=== PATIENT | male | born 1965 | race Caucasian/White ===

== ENCOUNTER → 2019-09-03 11:15 | Outpatient (CLI) | payer OTHER, SELFPAY ==
[2019-09-03 11:33] LABS: Basophils % 0.7 % (0.1-2.0); Eosinophils # 0.1 K/mm3 (0.0-0.4); Eosinophils % 2.4 % (0.1-12.0); Lymphocytes # 1.2 K/mm3 (0.7-4.5); Lymphocytes % 20.5 % (10-50); Mean Corpuscular HGB Conc 31.8 g/dL (31.8-35.4); Mean Corpuscular Hemoglobin 29.2 pg (27.0-31.2); Mean Corpuscular Volume 92.1 fl (80-94); Mean Platelet Volume 9.3 fl (7.4-10.4); Monocytes # 0.5 K/mm3 (0.1-1.0); Monocytes % 8.5 % (1.7-9.3); Neutrophils % 67.9 % (37.0-80.0); Platelet Count 226 K/mm3 (142-424); Red Blood Count 4.78 M/mm3 (4.60-6.20); Red Cell Distribution Width 13.3 % (11.5-17.5)
[2019-09-03 13:39] LABS: Alanine Aminotransferase 17 U/L (12-78); Albumin Level 3.6 gm/dL (3.4-5.0); Alkaline Phosphatase 108 U/L (46-116); Anion Gap 13.4 mEq/L (5-15); Aspartate Amino Transferase 10 U/L (15-37); Bilirubin,Total 0.3 mg/dL (0.2-1.0); Blood Urea Nitrogen 10 mg/dL (7-18); Calcium 8.8 mg/dL (8.5-10.1); Carbon Dioxide 26 mmol/L (21.0-32.0); Chloride 104 mmol/L (98-107); Chol/HDL Ratio 3.7 (1-3.5); Cholesterol 178 mg/dL (140-200); Free T4 (Free Thyroxine) 0.75 ng/dl (0.76-1.46); Glucose 90 mg/dL (74-106); HDL Cholesterol 48 mg/dL (27-67); LDL Cholesterol 107 mg/dL (0-130); Potassium 4.4 mmoL/L (3.5-5.1); Prostate Specific Ag Screen 0.7 ng/mL (0.0-4.0); Sodium 139 mmol/L (136-145); Total Protein,Serum 7.1 gm/dL (6.4-8.2); Triglycerides 117 mg/dL (30-200); VLDL Cholesterol 23 mg/dL (0-40)
[2019-09-03 13:56] LABS: Bilirubin,Direct 0.1 mg/dL (0.0-0.2); Bilirubin,Indirect 0.2 mg/dL (0.0-0.9); Creatinine,Serum 0.81 mg/dL (0.70-1.30); Estimated Glomerular Filt Rate 99 ml/min (>60); GFR (African American) 120 ML/MIN (>60)
== END ==
PROVIDERS: Visit Provider Internal Medicine
DX: E78.5 Hyperlipidemia, unspecified (principal); I11.9 Hypertensive heart disease without heart failure; I25.10 Atherosclerotic heart disease of native coronary artery without angina pectoris
CPT/HCPCS: 36415; 80048; 80061; 80076; 84439; 84443; 85025; G0103

== ENCOUNTER → 2020-09-27 09:08 | Outpatient (CLI) | payer OTHER, SELFPAY ==
--- NOTE | 2020-09-27 09:10 | CA_ITS ---
APPROVED REPORT EXAM: Comprehensive 2D, Doppler, and color-flow Echocardiogram Digital Marketing Specialist: Alysia Marmolejo RDCS Ht: 5 ft 11 in Wt: 282lbs BSA: 2.44 BP: 157/82 mmHg Indications: CAD OBESITY,HTN,HLP 2D Dimensions LVOT 2.24 cm (M/F) 1.5-2.5 M-Mode Dimensions RVDd 3.25 cm (0.9-2.6) LA Diam 3.55 cm (1.9-4.0) LVDd 6.00 cm (3.5-5.7) Ao Diam 3.21 cm (2.0-3.7) LVDs 3.39 cm (3.5-5.7) IVSd 1.13 cm (0.6-1.1) PWd 1.08 cm (0.6-1.1) EF (Teich) 73.80% FS 43.50% EDV (Teich) 180.00 mL ESV (Teich) 47.10 mL LV Diastology E Decel Time 187.00 (160-240 msec) E/A Ratio 0.6 MED E' 6.80 (< 7 cm/sec) E'/MED E' Ratio 6.99 (>14) LAT E' 10.00 (<10 cm/sec) E/LAT E' Ratio 4.75 (>14) Mitral Valve MV E Max Wero. 47.00 (40-130 cm/s) MV A Velocity 75.00 (40-130 cm/s) E/A Ratio 0.63 MV Decel. Time 187.00 (160-240 ms) MV PHT 55.00 ms Left Ventricle Left atrium is mildly enlarged, left ventricle is normal size, mild concentric left ventricular hypertrophy, visually estimated ejection fraction 55% with no regional wall motion abnormality, grade 1 diastolic dysfunction seen without tissue Doppler evidence of raise left atrial pressure. Right Ventricle Right atrium and right ventricle mildly enlarged with normal contractility. Aortic Valve Aortic valve is minimally thickened and fibrosed, there is no aortic stenosis or aortic insufficiency. Mitral Valve Mitral valve is grossly normal, there is mild mitral regurgitation. Tricuspid Valve Tricuspid valve is grossly normal, there is mild tricuspid regurgitation, tricuspid regurgitation jet velocity is inadequate for calculation of the right ventricular systolic pressure. Pulmonic Valve Pulmonic valve is poorly visualized. Great Vessels Aortic root is normal size. Pericardium No significant pericardial effusion noted. Conclusion 1. Mild biatrial alignment, normal left ventricular size, mild concentric left ventricular hypertrophy, visually estimated ejection fraction 55% with no regional wall motion abnormality, grade 1 diastolic dysfunction seen without tissue Doppler evidence of raise left atrial pressure. 2. Mildly enlarged right ventricle with normal contractility. 3. Mild mitral and tricuspid regurgitation. 4. No significant pericardial effusion noted. Electronically signed by : Kulwant Mcgee, 09/28/2020 05:36:18
== END ==
PROVIDERS: PCP Physician Assistant Medical; Visit Provider Physician Assistant
DX: I25.10 Atherosclerotic heart disease of native coronary artery without angina pectoris (principal); E78.2 Mixed hyperlipidemia; I11.9 Hypertensive heart disease without heart failure
CPT/HCPCS: 93306

== ENCOUNTER → 2022-11-21 07:28 | Outpatient (CLI) | payer OTHER, SELFPAY ==
[2022-11-21 07:43] LABS: Basophils # 0.1 K/mm3 (0-0.2); Basophils % 1.4 % (0.1-2.0); Eosinophils # 0.1 K/mm3 (0.0-0.4); Eosinophils % 2.5 % (0.1-12.0); Hematocrit 44.2 % (42.0-52.0); Hemoglobin 14.7 g/dL (14.1-18.0); Lymphocytes # 1.6 K/mm3 (0.7-4.5); Lymphocytes % 28.6 % (10-50); Mean Corpuscular HGB Conc 33.3 g/dL (31.8-35.4); Mean Corpuscular Hemoglobin 29.6 pg (27.0-31.2); Mean Corpuscular Volume 88.9 fl (80-94); Mean Platelet Volume 9.9 fl (7.4-10.4); Monocytes # 0.4 K/mm3 (0.1-1.0); Monocytes % 6.9 % (1.7-9.3); Neutrophils # 3.4 K/mm3 (1.8-7.8); Neutrophils % 60.7 % (37.0-80.0); Platelet Count 238 K/mm3 (142-424); Red Blood Count 4.97 M/mm3 (4.60-6.20); Red Cell Distribution Width 12.8 % (11.5-17.5); White Blood Count 5.6 K/mm3 (4.8-10.8)
[2022-11-21 08:54] LABS: Alanine Aminotransferase 24 U/L (12-78); Albumin Level 4.4 g/dl (3.5-5.0); Alkaline Phosphatase 88 U/L (38-126); Anion Gap 13.2 mEq/L (5-15); Aspartate Amino Transferase 25 U/L (17-59); Bilirubin,Direct 0.1 mg/dl (0.0-0.4); Bilirubin,Indirect 0.3 mg/dL (0.0-0.9); Bilirubin,Total 0.4 mg/dl (0.2-1.3); Bilirubin,Unconjugated 0.3 mg/dL (0.0-1.1); Blood Urea Nitrogen 20 mg/dl (9-20); Calcium 8.8 mg/dl (8.4-10.2); Carbon Dioxide 24 mmol/L (22.0-30.0); Chloride 106 mmol/L (98-107); Cholesterol 208 mg/dl (140-200); Estimated Glomerular Filt Rate 87 ml/min (>60); GFR (African American) 105 ML/MIN (>60); Glucose 102 mg/dl (74-100); HDL Cholesterol 42 mg/dl (40-60); Potassium 4.2 mmoL/L (3.5-5.1); Sodium 139 mmol/L (136-145); Total Protein,Serum 7.3 g/dl (6.3-8.2); Triglycerides 101 mg/dl (30-150); VLDL Cholesterol 20 mg/dL (0-40)
[2022-11-21 09:11] LABS: Direct LDL Cholesterol 139.07 mg/dL (100-129); Free T4 (Free Thyroxine) 0.83 ng/dl (0.78-2.19)
[2022-11-21 09:24] LABS: Thyroid Stimulating Hormone 2.18 uIU/mL (0.465-4.68)
== END ==
PROVIDERS: PCP Physician Assistant Medical; Visit Provider Physician Assistant
DX: I25.10 Atherosclerotic heart disease of native coronary artery without angina pectoris (principal); I11.9 Hypertensive heart disease without heart failure; E03.9 Hypothyroidism, unspecified; E78.2 Mixed hyperlipidemia; Z79.899 Other long term (current) drug therapy
CPT/HCPCS: 36415; 80048; 80061; 80076; 83735; 84439; 84443; 85025

== ENCOUNTER → 2023-09-18 11:51 | Outpatient (CLI) | payer OTHER, SELFPAY ==
[2023-09-18 12:32] LABS: Basophils % 0.5 % (0.1-2.0); Eosinophils # 0.2 K/mm3 (0.0-0.4); Hematocrit 44.1 % (42.0-52.0); Hemoglobin 15.6 g/dL (14.1-18.0); Lymphocytes # 1.5 K/mm3 (0.7-4.5); Lymphocytes % 18.6 % (10-50); Mean Corpuscular HGB Conc 35.3 g/dL (31.8-35.4); Mean Corpuscular Hemoglobin 31.7 pg (27.0-31.2); Mean Platelet Volume 9.4 fl (7.4-10.4); Monocytes # 0.5 K/mm3 (0.1-1.0); Monocytes % 6.6 % (1.7-9.3); Neutrophils # 5.9 K/mm3 (1.8-7.8); Neutrophils % 72.3 % (37.0-80.0); Platelet Count 193 K/mm3 (142-424); Red Cell Distribution Width 12.5 % (11.5-17.5); White Blood Count 8.1 K/mm3 (4.8-10.8)
[2023-09-18 13:28] LABS: Chloride 105 mmol/L (98-107); Potassium 4.1 mmoL/L (3.5-5.1); Sodium 136 mmol/L (136-145)
[2023-09-18 13:30] LABS: Blood Urea Nitrogen 14 mg/dl (9-20); Estimated Glomerular Filt Rate 99 ml/min (>60); GFR (African American) 120 ML/MIN (>60)
[2023-09-18 13:31] LABS: Alanine Aminotransferase 23 U/L (12-78); Albumin Level 4.4 g/dl (3.5-5.0); Alkaline Phosphatase 119 U/L (38-126); Anion Gap 10.1 mEq/L (5-15); Aspartate Amino Transferase 27 U/L (17-59); Bilirubin,Direct 0.2 mg/dl (0.0-0.4); Bilirubin,Indirect 0.7 mg/dL (0.0-0.9); Bilirubin,Total 0.9 mg/dl (0.2-1.3); Bilirubin,Unconjugated 0.7 mg/dL (0.0-1.1); Calcium 8.8 mg/dl (8.4-10.2); Carbon Dioxide 25 mmol/L (22.0-30.0); Cholesterol 133 mg/dl (140-200); Glucose 92 mg/dl (74-100); Total Protein,Serum 7.5 g/dl (6.3-8.2); Triglycerides 103 mg/dl (30-150); VLDL Cholesterol 21 mg/dL (0-40)
[2023-09-18 13:32] LABS: Chol/HDL Ratio 3.3 (1-3.5); HDL Cholesterol 40 mg/dl (40-60)
[2023-09-18 13:54] LABS: Free T4 (Free Thyroxine) 0.96 ng/dl (0.78-2.19)
[2023-09-18 13:55] LABS: Direct LDL Cholesterol 80.86 mg/dL (100-129)
[2023-09-18 14:13] LABS: Thyroid Stimulating Hormone 1.81 uIU/mL (0.465-4.68)
== END ==
PROVIDERS: Nurse Practitioner Family; PCP Physician Assistant Medical; Visit Provider Internal Medicine
DX: I11.9 Hypertensive heart disease without heart failure (principal); I25.10 Atherosclerotic heart disease of native coronary artery without angina pectoris; E78.5 Hyperlipidemia, unspecified; Z86.73 Personal history of transient ischemic attack (TIA), and cerebral infarction without residual deficits; Z79.899 Other long term (current) drug therapy; Z87.891 Personal history of nicotine dependence
CPT/HCPCS: 36415; 80048; 80061; 80076; 84439; 84443; 85025

== ENCOUNTER → 2023-09-26 11:13 | Outpatient (CLI) | payer OTHER, SELFPAY ==
--- NOTE | 2023-09-26 | CA_ITS ---
APPROVED REPORT Exam: Exercise Treadmill Technologist: Lavinia Rosenbaum, Ht: 5 ft 11 in Wt: 278 lbs BSA: 2.43 m2 HR: 145 bpm BP: 145/80 mmHg Rhythm: Sinus anu, cannot r/o old inferior NM Indications: Arm pain, Fatigue Medical History Medical History: HTN, Hyperlipidemia Medications: Omeprazole,,,,, Levothyroxine,,,,, Aspirin,,,,, Vitamin B12,,,,, Vitamin D3,,,,, Atorvastatin,,,,, Valsartan,,,,, LoraTidine,,,,, Multivitamin,,,,, Allergies: Pcn Cardiac Risk Factors: HTN, Hyperlipidemia Previous Cardiac Procedures: Stent Stress Test Details Test: Noah HR Resting HR: 67 bpm Max Heart Rate (APMHR): 162 bpm Max HR Achieved: 145 bpm Target HR (85% APMHR): 138 bpm % of APMHR: 90 Recovery HR: 89 bpm HR response to stress: Normal HR response to stress BP Resting BP: 139.0/80.0 mmHg Max BP: 186.0/86.0 mmHg Recovery BP: 159.0/63.0 mmHg BP response to stress: Normal blood pressure response to stress. ECG Resting ECG: Sinus anu,cannot r/o old inferior NM Stress EC.[address] depression Arrhythmia: None Clinical Exercise duration: 08:14 min Highest Stage Achieved: Exercise capacity: 10.1 METs Overall Exercise Capacity for Age: Average Stress ECG Conclusion Patient exercised 8:14 on Buce protocol with max heart rate 145 bpm which is 90% of PM for age. The patient has average exercise capacity. He was able to achieve 10.1 METS. He has normal HR and BP response to exercise. Max BP 186/86. METs = 10.1. Test stopped due to soa and fatigue. No chest or arm pain. No arrhythmias/ectopy. ST Changes: 0.[address] changes CONCLUSION Average exercise capacity. No significant ECG changes at peak stress suggestive of absence of ischemia. Myoview images are reported separately. Test Summary REST . . . . . . . Standing REST . . . . . . . Sitting REST 05:21 0.0 0.0 67 . 139/ 80 . . Stage 1 01:00 10.0 1.7 92 . . . . Stage 1 02:00 10.0 1.7 92 . . . . Stage 1 03:00 10.0 1.7 100 . 178/ 86 . . Stage 2 01:00 12.0 2.5 101 . . . . Stage 2 02:00 12.0 2.5 114 . . . . Stage 2 03:00 12.0 2.5 117 . 186/ 86 . . Stage 3 01:00 14.0 3.4 136 . . . . Stage 3 . . . . . . . Myoview Injected Stage 3 02:00 14.0 3.4 144 . . . . Stage 3 02:14 14.0 3.4 144 . . . Stop exercise at 08:14 RECOVERY 01:00 0.0 0.0 124 . . . . RECOVERY 02:00 0.0 0.0 90 . . . . RECOVERY 03:00 0.0 0.0 87 . 159/ 63 . . RECOVERY 04:00 0.0 0.0 84 . 159/ 92 . . RECOVERY 05:00 0.0 0.0 78 . 149/ 91 . . RECOVERY 05:18 0.0 0.0 79 . 149/ 91 . . Electronically signed by : Brandi Crawford MD 10/04/2023 13:26:48
--- NOTE | 2023-09-26 11:13 | NM_ITS ---
APPROVED REPORT Exam: Nuclear Stress Test Indication: CAD, 1 STENT, HTN, FM HX, FATIGUE, ARM PAIN Patient Location: Outpatient Stress Tech: Cris Espinoza [place] Tech:Sharon WhiteNIKKO RT (R)(N)(M) Ht: 6 ft 1 in Wt: 275 lbs HR: 67 bpm BP: 139/80 mmHg BSA: 2.46 m2 TID: 1.11 BMI: 36.2 History: CAD, 1 STENT, HTN, FM HX, FATIGUE, ARM PAIN Procedure: Patient exercised on Noah protocol 8:14 minutes and sec, resting heart rate 67 bpm, resting blood pressure 139/80 mmHg, with exercise maximum heart rate achived was 145 bpm which is 90 % of the maximum predicted heart rate and blood pressure was 186/86 mmHg. Test was stopped due to FATIGUE. Patient has Average exercise capacity, achieved 10.1 METs of workload on treadmill, the blood pressure response to exercise was Normal. Cardiac Stress and Resting SPECT Images: Cardiac Stress and Resting SPECT images were obtained using technetium 99m Myoview 31.7 mCi stress and 10.70 mCi at rest. Resting and stress imaging in supine and prone positions demonstrate no evidence of fixed or reversible perfusion defects. Gated imaging demonstrates normal global and regional LV systolic function. LVEF is calculated at 62%. Conclusion: No evidence of fixed or reversible perfusion defects. Gated imaging demonstrates normal global and regional LV systolic function. LVEF is calculated at 62%. Electronically signed by : Brandi Crawford MD 10/04/2023 13:27:56
--- NOTE | 2023-09-26 11:13 | CA_ITS ---
APPROVED REPORT EXAM: Comprehensive 2D, Doppler, and color-flow Echocardiogram [place] Manager: TIM Thomas, RVS Ht: 5 ft 11 in Wt: 278lbs BSA: 2.43 BP: 145/82 mmHg Indications: CAD, Bradycrdia, HTN, HLD, Diastolic dysfunction, Ex-smoker 2D Dimensions Aortic Root 3.57 cm LA Volume 47.60 mL Left Atrium 2.99 cm LA Volume Index 19.20 mL/m2 (M/F) 16-34 LVOT 2.27 cm (M/F) 1.5-2.5 M-Mode Dimensions RVDd 4.19 cm (0.9-2.6) LA Diam 5.13 cm (1.9-4.0) LVDd 5.74 cm (3.5-5.7) Ao Diam 3.80 cm (2.0-3.7) LVDs 3.06 cm (3.5-5.7) IVSd 1.22 cm (0.6-1.1) PWd 1.18 cm (0.6-1.1) EF (Teich) 77.40% EPSs 0.75 cm FS 46.70% EDV (Teich) 162.60 mL TAPSE 3.15 (<1.7) ESV (Teich) 36.70 mL LV Diastology E Decel Time 197.00 (160-240 msec) E/A Ratio 1.40 MED E' 7.30 (< 7 cm/sec) MED A' 10.70 cm/s E'/MED E' Ratio 11.11 (>14) LAT E' 5.20 (<10 cm/sec) LAT A' 8.40 cm/s E/LAT E' Ratio 15.60 (>14) Aortic Valve LVOT Max 70.00 (70-110 cm/s) LVOT VTI 18.76 cm AoV Peak Wero. 97.00 (50-130 cm/s) AO Peak GR. 3.70 mmHg AO Mean GR. 1.90 (<5 mmHg) AO VTI 21.06 (18-25 cm) NICOLE (VTI) 3.61 (2.5-4.5 cm2) Mitral Valve MV A Velocity 58.00 (40-130 cm/s) E/A Ratio 1.40 MV Decel. Time 197.00 (160-240 ms) Tricuspid Valve TR P. Velocity 227.00 cm/s Left Ventricle The left ventricle is normal size. The left ventricular systolic function is normal. The left ventricular ejection fraction is within the normal range. There is normal left ventricular wall thickness. There is normal LV segmental wall motion. The left ventricular diastolic function is normal. LVEF is 55%. Right Ventricle Right ventricle is mild to moderately dilated. Right ventricle is mildly hypokinetic. Atria The left atrium size is normal. The right atrium size is normal. There is no Doppler evidence of interatrial shunt. Aortic Valve The aortic valve opens well. There is no aortic valvular stenosis. No aortic regurgitation is present. Mitral Valve The mitral valve is normal in structure. No evidence of mitral valve stenosis. Mild mitral regurgitation. Tricuspid Valve The tricuspid valve leaflets are thin and pliable. Mild tricuspid regurgitation. RVSP is 20-25 mmHg. Pulmonic Valve The pulmonary valve is normal in structure. Trace pulmonic regurgitation. Great Vessels The aortic root is normal in size. The ascending aorta is normal in size. IVC is normal in size and collapses >50% with inspiration. Pericardium There is no pericardial effusion. Other Information Study Quality: Fair Conclusion Normal LV systolic function. Mild to moderate RV dilation with mild RV dysfunction. Mild MR, mild TR. Electronically signed by : Brandi Crawford MD 10/01/2023 19:47:55
== END ==
LOC: RAD 11:13
PROVIDERS: PCP Physician Assistant Medical; Visit Provider Nurse Practitioner Family
DX: I25.10 Atherosclerotic heart disease of native coronary artery without angina pectoris (principal); I11.9 Hypertensive heart disease without heart failure; E78.5 Hyperlipidemia, unspecified; M79.602 Pain in left arm; Z79.899 Other long term (current) drug therapy; Z87.891 Personal history of nicotine dependence
CPT/HCPCS: 78452; 93017; 93018; 93306; A9502